=== PATIENT | male | born 1950 | race Caucasian/White ===

== ENCOUNTER 2017-10-01 07:42 | Observation (INO) | payer OTHER ==
[~2017-10-01] VITALS: Ht 160 cm; Wt 100.4 kg
[2017-10-01] MEDS ORDERED: LEVOFLOXACIN 500MG/D5W 100ML 100 ML IV ONE (08:35)
[2017-10-01] MEDS ORDERED: GENTAMICIN 80MG/NS 100 ML 200 ML IV ONE (08:35)
[2017-10-01] MEDS ORDERED: CLINDAMYCIN 300MG 50 ML IV ONE (08:35)
[2017-10-01 09:08] LABS: BASOPHILS % 0.2 % (0.0-1.0); EOSINOPHILS # (AUTO) 0.2 (0.0-0.4); EOSINOPHILS % 2.7 % (0.0-6.0); HEMATOCRIT 36.6 % (38.2-49.6); HEMOGLOBIN 12.2 g/dL (14.0-18.0); LYMPHOCYTES # (AUTO) 2.2 (1.0-3.2); MEAN CORPUSCULAR HEMOGLOBIN 28.2 pg (28-32); MEAN CORPUSCULAR HGB CONC 33.3 g/dL (31-35); MEAN CORPUSCULAR VOLUME 84.5 fL (81-99); MONOCYTES # (AUTO) 0.7 (0.2-0.8); MONOCYTES % 8.1 % (4.4-11.3); NEUTROPHILS # (AUTO) 5.3 (2.1-6.9); NEUTROPHILS % 62.6 % (38.7-80.0); PLATELET COUNT 233 x10e3/uL (140-360); RED BLOOD COUNT 4.33 x10e6/uL (4.3-5.7); RED CELL DISTRIBUTION WIDTH 14.9 % (11.7-14.4)
[2017-10-01] MEDS ORDERED: PROPAFENONE HC325 MG PO (09:08)
[2017-10-01] MEDS ORDERED: ASPIRIN81 MG (09:08)
[2017-10-01] MEDS ORDERED: LEVOTHYROXINE50 MCG PO (09:08)
[2017-10-01] MEDS ORDERED: METFORMIN HCL500 MG PO (09:08)
[2017-10-01] MEDS ORDERED: ADVAIR HFA 115-12 GM (09:08)
[2017-10-01] MEDS ORDERED: FINASTERIDE5 MG PO (09:08)
[2017-10-01] MEDS ORDERED: TAMSULOSIN HCL0.4 MG (09:08)
[2017-10-01] MEDS ORDERED: ZETIA10 MG PO (09:08)
[2017-10-01] MEDS ORDERED: COMBIGAN EYE DRO5 ML (09:08)
[2017-10-01] MEDS ORDERED: WARFARIN SODIUM3 MG PO (09:08)
[2017-10-01] MEDS ORDERED: GLIPIZIDE5 MG PO (09:08)
[2017-10-01] MEDS ORDERED: AMLODIPINE BESY10 MG PO (09:08)
[2017-10-01] MEDS ORDERED: OMEPRAZOLE40 MG (09:08)
[2017-10-01] MEDS ORDERED: ATORVASTATIN CA20 MG PO (09:08)
[2017-10-01 09:17] LABS: CALCIUM 9.4 mg/dL (8.4-10.2); CHLORIDE 102 mmol/L (98-107); GLUCOSE 134 mg/dL (74-118); INR 1.04; POTASSIUM 4.3 mmol/L (3.5-5.1); PROTHROMBIN TIME 12.8 seconds (11.9-14.5); SODIUM 137 mmol/L (136-145)
[2017-10-01 09:18] LABS: PARTIAL THROMBOPLASTIN TIME 26.5 seconds (23.8-35.5)
[2017-10-01 09:37] LABS: ANION GAP 17.3 mmol/L (8-16); BLOOD UREA NITROGEN 15 mg/dL (7-26); BUN/CREATININE RATIO 13 (6-25); CARBON DIOXIDE 22 mmol/L (22-29); CREATININE, SERUM 1.13 mg/dL (0.72-1.25); EST GLOMERULAR FILTRATION RATE > 60 ML/MIN (60-)
--- NOTE | 2017-10-01 09:48 | Diagnostic Imaging Report ---
PROCEDURE: X-RAY CHEST, TWO VIEWS COMPARISON: None. INDICATIONS: PRE OPERATIVE CHEST X-RAY FOR UROLOGY SURGERY FINDINGS: The lungs are well-inflated. No focal airspace consolidation, pleural effusion, or pneumothorax. Postsurgical changes of the mediastinum with multiple clips and sternotomy wires. Tortuosity and atherosclerotic calcification of the thoracic aorta. Normal heart size. No pulmonary edema. No acute osseous abnormality. Degenerative disc changes of the thoracic spine. CONCLUSION: No acute cardiopulmonary abnormality. Dictated by: Cooper Dallas M.D. on 10/01/2017 at 9:53 Electronically approved by: Cooper Dallas M.D. on 10/01/2017 at 9:53
[2017-10-01] MEDS ORDERED: BELLADONNA/OPIUM 30 MG SUPP RC ONE (11:40)
[2017-10-01] MEDS ORDERED: IOPAMIDOL 300MG/ML 50ML INFUS..BTL IV ONE (11:40)
[2017-10-01] MEDS ORDERED: DEXAMETHASONE SOD PHOS INJ 4 MG/ML VIAL ONE (17:34)
[2017-10-01] MEDS ORDERED: DESFLURANE 240 ML BTL INH ONE (17:34)
[2017-10-01] MEDS ORDERED: ONDANSETRON HCL INJ 2 MG/ML VIAL ONE (17:34)
[2017-10-01] MEDS ORDERED: PROPOFOL IV EMULSION 10 MG/ML 20 ML VIAL ONE (17:34)
[2017-10-01] MEDS ORDERED: LIDOCAINE HCL 2% LOCAL INJ 5 ML SDV VIAL INJ ONE (17:34)
[2017-10-01 18:01] VITALS: BP 138/76
[2017-10-01 19:45] VITALS: BP 113/57
[2017-10-01] MEDS ORDERED: DEXTROSE 50% SYRINGE 50 ML IV PRN (20:15)
[2017-10-01] MEDS ORDERED: KETOROLAC TROMETHAMINE 30 MG/ML VIAL IV PRN (20:15)
[2017-10-01] MEDS ORDERED: ONDANSETRON HCL INJ 2 MG/ML VIAL IV PRN (20:15)
[2017-10-01] MEDS ORDERED: ACETAMINOPHEN 325 MG TAB PO PRN (20:15)
[2017-10-01] MEDS ORDERED: HYDROCODONE/APAP 7.5MG-325MG 1 EA TAB PO PRN (20:15)
[2017-10-01] MEDS ORDERED: FENTANYL CITRATE/PF 100MCG/2 ML INJ ONE (20:18)
[2017-10-01] MEDS: PROPAFENONE HCL SR 325 MG CAPCR PO SCH (21:26)
[2017-10-01] MEDS: INSULIN LISPRO 100 UNIT/1 ML 3ML VIAL SQ SCH (21:27)
[2017-10-01 22:15] VITALS: BP 113/57
[2017-10-02] VITALS (9 sets, daily range): BP systolic 89–132; BP diastolic 50–68
[2017-10-02] MEDS ORDERED: LEVOTHYROXINE SODIUM 100 MCG TAB PO SCH (06:00)
[2017-10-02] MEDS ORDERED: LEVOTHYROXINE SODIUM 75 MCG TAB PO SCH (06:00)
[2017-10-02] MEDS ORDERED: DEXTROSE 5%/0.45% SOD CHL 1,000 ML IV SCH (06:30)
[2017-10-02] MEDS ORDERED: LEVOFLOXACIN 500 MG TAB PO SCH (07:30)
[2017-10-02] MEDS: INSULIN LISPRO 100 UNIT/1 ML 3ML VIAL SQ SCH ×3 (08:05→16:27)
[2017-10-02] MEDS: PROPAFENONE HCL SR 325 MG CAPCR PO SCH (08:24)
[2017-10-02] MEDS: FLUTICASONE/SALMETEROL 115/21 12 GM AERO IH SCH ×2 (08:25→16:26)
[2017-10-02] MEDS ORDERED: FINASTERIDE 5 MG TAB PO SCH (09:00)
[2017-10-02] MEDS ORDERED: PANTOPRAZOLE SOD 40 MG TABEC PO SCH (09:00)
[2017-10-02] MEDS ORDERED: LEVOTHYROXINE SODIUM 50 MCG TAB PO SCH (09:00)
[2017-10-02] MEDS ORDERED: BRIMONIDINE/TIMOLOL (OPTH SOLN 5 ML DRPETTE OP SCH (09:00)
[2017-10-02] MEDS ORDERED: AMLODIPINE BESYLATE 10 MG TAB PO SCH (09:00)
--- NOTE | 2017-10-02 09:32 | History and Physical ---
CHIEF COMPLAINT: Status post prostate biopsy and cystoscopy. HISTORY: Patient is a 66-year-old male with enlarged prostate and abnormal prostate exam. The patient is status post procedures of cystoscopy with prostate biopsy. The patient is stable. PAST MEDICAL HISTORY: Enlarged prostate, abnormal prostate exam, urinary retention, right-sided weakness, alf longterm care patient, diabetes, type 2, hypertension, atrial fibrillation, anticoagulant therapy, hypothyroidism, dyslipidemia. SOCIAL HISTORY: Patient is a resident of a alf. ALLERGIES: PENICILLIN. HOME MEDICATIONS: Norvasc, aspirin, Lipitor, eye drops, Zetia, finasteride, Advair Diskus, glipizide, metformin, levothyroxine, omeprazole, propafenone, Flomax, and Coumadin. PHYSICAL EXAMINATION VITAL SIGNS: Temperature is 98, blood pressure 101/64, pulse rate 80, respirations 18. GENERAL: The patient is in no acute distress. HEENT: Normocephalic, atraumatic and anicteric. NECK: Supple grossly. PULMONARY: Clear. CARDIOVASCULAR: Regular rate and rhythm. ABDOMEN: Soft. EXTREMITIES: No cyanosis or edema. NEUROLOGIC: Right-sided weakness. LABORATORY: Otherwise unremarkable. IMPRESSION 1. Status post prostate biopsy with cystoscopy. 2. Enlarged prostate. 3. Abnormal prostate exam per urology, Dr. Jay Hardin. PLAN: Postoperative care. Resume home medications. IV fluids. Pain control. Voiding trial. Garcia catheter care and discontinue if appropriate. Patient is stable. Job#: [id number] LASHAUN
--- NOTE | 2017-10-02 10:52 | Discharge Summary ---
PCP: Dr. Moody CLIENT SERVICES ACCOUNT MANAGER: Dr. Jay Hardin FINAL DIAGNOSES 1. Status post cystoscopy with prostate biopsy. 2. Status post retrograde pyelogram. 3. Diabetes, type 2. 4. Hypertension. 5. Urinary retention. SUMMARY: Patient is a 66-year-old male assisted patient, status post cystoscopy with prostate biopsy for ruling out of prostate cancer. Patient is stable. Tolerated all diet. The patient will go home today. Follow up with Dr. Jay Hardin for the pathology report. He will resume his home medications. Levaquin 500 mg daily for 7 days. Tylenol No. 3 p.r.n. for pain. The patient is stable. Discharge follow up as an outpatient. Job#: [id number] LASHAUN
[2017-10-02] MEDS ORDERED: TAMSULOSIN HCL 0.4 MG CAP PO SCH (16:30)
--- NOTE | 2017-12-02 01:11 | Operative Report ---
DATE OF PROCEDURE: October 01, 2017 PREOPERATIVE DIAGNOSES 1. Elevated prostate-specific antigen. 2. Obstructive BPH. 3. Incomplete bladder emptying. POSTOPERATIVE DIAGNOSES 1. Elevated prostate-specific antigen. 2. Obstructive BPH. 3. Incomplete bladder emptying. 4. History of urethral stricture disease of the fossa navicularis. OPERATIONS PERFORMED 1. Transrectal ultrasonography interpretation (the radiologist not present). 2. Ultrasonographic guidance interpretation for prostate biopsies (no radiologist present). 3. Prostate biopsies (separate procedure performed for the elevated prostate-specific antigen). 4. Cystourethroscopy with calibration and dilation of urethral stricture (separate procedure performed for diagnosis of stricture). 5. Cystourethroscopy with bilateral ureteral catheterization and retrograde ureteropyelography (separate procedure performed for the incomplete bladder emptying). 6. Interpretation of retrograde ureteropyelography. 7. Supervision of fluoroscopy. No radiologist present. 8. Cystourethroscopy with implantation of 4 UroLift implants. ANESTHESIA: General. COMPLICATION: None. CLINICAL SUMMARY: Saqib España is a 66-year-old man with the above preoperative diagnoses. He was brought for the above procedures. He is aware of the risks of bleeding, infection, injury to adjacent structures, need for additional procedures and elected to proceed. OPERATIVE PROCEDURE IN DETAIL: Informed consent was verified. Saqib España was properly identified, taken to operating room, placed on the cystoscopy table in supine position. Anesthesia was uneventfully begun. The patient was then carefully and gently repositioned in the dorsal lithotomy position with all pressure points well padded. Transrectal ultrasonography was performed. Digital rectal examination revealed a 30-g prostate that is firm at the right base. Transrectal ultrasonography was then performed. Interpretation of transrectal ultrasound: Patient's prostate was estimated approximately 14 mL in size. There were calcifications periurethrally in the transition zone. Seminal vesicles were unremarkable. Prostate capsule was smooth. No specific hypoechoic lesions could be appreciated. Ultrasonographic guidance needle biopsy of the prostate were taken. Multiple biopsies were taken at each of 6 locations and sent as 6 different specimens. Specimens were differentiated right versus left and base versus mid versus apex. The patient's genitalia were then prepared and draped in usual sterile fashion. A 22.5-Swiss cystoscope sheath with the visual obturator in place. It was atraumatically inserted into the patient's urethral meatus, but it could not be advanced past the fossa navicularis. We calibrated the fossa navicularis at 18-Swiss in size and dilated progressively to 26-Swiss in size. We then were able to easily place the cystoscope sheath into the patient's urethra. It was guided down the unremarkable distal urethra through the bulbar region, where there was a wide caliber probably not clinically significant obstruction, which we easily went past. We went through the prostate bed, which was significant for visually obstructing BPH with no median lobe and no median bar. Panendoscopy of the urinary bladder revealed grade-1 trabeculations, but no tumors, no stones, and no diverticula. Normally positioned and configured ureteral orifices were identified. Ureteral catheter used to cannulate each ureter and retrograde ureteropyelograms were performed. Interpretation of retrograde ureteropyelography: Contrast was instilled in retrograde fashion bilaterally. There were no tumors, no stones, and no diverticula. Unobstructed drainage was observed bilaterally fluoroscopically. We then introduced the UroLift 20-Swiss cystoscope and then, we placed UroLift implants anterolaterally on either side, 1.5 cm distal to the bladder neck and at the level of the verumontanum. This resulted in a continuous anterior channel that was open. The cystoscope was withdrawn following drainage of the bladder and the patient was uneventfully reversed from anesthesia, taken to recovery in stable condition. There were no complications to the procedure. He tolerated the procedure well. Explicit postop instructions were given. Plans will be to follow the patient up for uro telemetry and followup bladder ultrasonography as an outpatient. Job#: [id number] CQ
== END 2017-10-02 19:00 | disposition home or self-care (01) ==
LOC: OR 07:42 → PACU V 16:01 → IMCU 17:25
PROVIDERS: ADMIT Internal Medicine; ATTEND Internal Medicine
DX: N40.0 Benign prostatic hyperplasia without lower urinary tract symptoms (principal); R97.20 Elevated prostate specific antigen [PSA]; N40.1 Benign prostatic hyperplasia with lower urinary tract symptoms; R33.8 Other retention of urine; N13.8 Other obstructive and reflux uropathy; R39.14 Feeling of incomplete bladder emptying; R35.1 Nocturia; R39.12 Poor urinary stream; N40.3 Nodular prostate with lower urinary tract symptoms; E11.22 Type 2 diabetes mellitus with diabetic chronic kidney disease; I12.9 Hypertensive chronic kidney disease with stage 1 through stage 4 chronic kidney disease, or unspecified chronic kidney disease; N18.9 Chronic kidney disease, unspecified; N32.89 Other specified disorders of bladder; K42.9 Umbilical hernia without obstruction or gangrene; E66.01 Morbid (severe) obesity due to excess calories; I48.91 Unspecified atrial fibrillation; E03.9 Hypothyroidism, unspecified; I69.351 Hemiplegia and hemiparesis following cerebral infarction affecting right dominant side; E78.5 Hyperlipidemia, unspecified; Z88.0 Allergy status to penicillin; Z79.01 Long term (current) use of anticoagulants; Z79.82 Long term (current) use of aspirin; Z79.84 Long term (current) use of oral hypoglycemic drugs; Z68.33 Body mass index [BMI] 33.0-33.9, adult; Z95.1 Presence of aortocoronary bypass graft
CPT/HCPCS: 52005; 55700; C9740; 36415; 71046; 74420; 76872; 76942; 80048; 82948; 85025; 85610; 85730; 88305; 93005; G0378; J1100; J1580; J1956; J2001; J2405; J7799; L8699